=== PATIENT | male | born 1950 | race Caucasian/White ===

== ENCOUNTER 2020-12-16 08:42 | Outpatient (CLI) | payer MEDICARE, SELFPAY ==
--- NOTE | 2020-12-16 08:51 | EST_ITS ---
Patient Info Name: Ascencion Patel Age: 70 years : 1950 Gender: Male Ht: 69 in Wt: 145 lbs BSA: 1.79 m2 Exam Date: 12/16/2020 9:29 AM Exam Location: [facility] Patient Status: Outpatient Admit Date: 12/16/2020 Staff Ordering Physician: Ashwin Watson DO Welding Machine Operator: Lindsey Ramirez RDCS Attending Provider: MARI ORNELAS DO Referring Physician: Shirley ZHONG; Exercise Technologist: Taylor Hou RDCS Exercise Physician: Mari Ornelas DO Exam Type: CA stress echo Study Info Indications R07.9 - Chest pain, unspecified Treadmill exercise stress echocardiogram is performed. Summary 1. 1. Negative Arias exercise stress test for ischemic ST changes by ECG criteria. 2. 2. Good functional capacity, achieving 7 METs of workload. 3. 3. Hypertensive response to exercise. 4. 4. Appropriate HR response to exercise. 5. 5. Appropriate HR recovery at 1 minute post exercise. 6. 6. Negative stress echocardiogram for ischemia by wall motion analysis. 7. 7. Patient informed of the above results. Stress Echo Findings Left Ventricle Appropriate increase in LV endocardial thickening with systole. Appropriate augmentation of contractility with systole. No wall motion abnormality. Left Ventricle Normal LV systolic function, no wall motion abnormality. Protocol: Arias Stress ECG Details Stage: REST Duration (min): 5 min : 43 sec Speed (mph): 0.0 Grade (%): 0 HR (bpm): 67 SBP (mmHg): 127 DBP (mmHg): 76 METS: --- Stage: REST Duration (min): 18 min : 8 sec Speed (mph): 0.0 Grade (%): 0 HR (bpm): 69 SBP (mmHg): 127 DBP (mmHg): 76 METS: --- Stage: STAGE 1 Duration (min): 1 min : 0 sec Speed (mph): 1.7 Grade (%): 10 HR (bpm): 98 SBP (mmHg): 127 DBP (mmHg): 76 METS: --- Stage: STAGE 1 Duration (min): 2 min : 0 sec Speed (mph): 1.7 Grade (%): 10 HR (bpm): 109 SBP (mmHg): 127 DBP (mmHg): 76 METS: --- Stage: STAGE 1 Duration (min): 3 min : 0 sec Speed (mph): 1.7 Grade (%): 10 HR (bpm): 116 SBP (mmHg): 169 DBP (mmHg): 74 METS: --- Stage: STAGE 2 Duration (min): 1 min : 0 sec Speed (mph): 2.5 Grade (%): 12 HR (bpm): 130 SBP (mmHg): 169 DBP (mmHg): 74 METS: --- Stage: STAGE 2 Duration (min): 1 min : 50 sec Speed (mph): 0.0 Grade (%): 0 HR (bpm): 139 SBP (mmHg): 229 DBP (mmHg): 83 METS: --- Stage: RECOVERY Duration (min): 0 min : 9 sec Speed (mph): 0.0 Grade (%): 0 HR (bpm): 139 SBP (mmHg): 229 DBP (mmHg): 83 METS: --- Stage: RECOVERY Duration (min): 1 min : 9 sec Speed (mph): 0.0 Grade (%): 0 HR (bpm): 113 SBP (mmHg): 211 DBP (mmHg): 80 METS: --- Stage: RECOVERY Duration (min): 2 min : 9 sec Speed (mph): 0.0 Grade (%): 0 HR (bpm): 98 SBP (mmHg): 211 DBP (mmHg): 80 METS: --- Stage: RECOVERY Duration (min): 3 min : 9 sec Speed
== END 2020-12-16 08:43 | disposition home or self-care (01) ==
PROVIDERS: PCP Internal Medicine; Visit Provider Internal Medicine
DX: R07.89 Other chest pain (principal)
CPT/HCPCS: 93351

== ENCOUNTER 2021-11-30 10:01 | Outpatient (CLI) | payer MEDICARE, SELFPAY ==
[2021-11-30 11:24] LABS: Alanine Aminotransferase 32 U/L (6-50); Albumin Level 4.5 g/dL (3.5-5.1); Alkaline Phosphatase 46 U/L (38-126); Anion Gap 11 mmol/L (8-16); Aspartate Amino Transferase 35 U/L (17-59); Bilirubin,Total 0.4 mg/dL (0.2-1.3); Blood Urea Nitrogen 20 mg/dL (9-20); Calcium 9.1 mg/dL (8.4-10.2); Carbon Dioxide 30 mmol/L (22-30); Chloride 99 mmol/L (98-107); Cholesterol 191 mg/dL (0-200); Estimated Glomerular Filt Rate > 60; Glucose 94 mg/dL (65-110); HDL Direct 37 mg/dL; Sodium 140 mmol/L (137-145); Triglycerides 109 mg/dL (<150)
[2021-11-30 11:35] LABS: LDL Cholesterol Direct 128 mg/dL
[2021-11-30 11:54] LABS: Prostate Specific Antigen 0.5 ng/mL (< OR = 4.0)
== END 2021-11-30 10:02 | disposition home or self-care (01) ==
LOC: ANHLAB 10:08
PROVIDERS: PCP Internal Medicine; Visit Provider Internal Medicine
DX: Z13.6 Encounter for screening for cardiovascular disorders (principal); E78.5 Hyperlipidemia, unspecified; Z12.5 Encounter for screening for malignant neoplasm of prostate
CPT/HCPCS: 36415; 80053; 80061; 84153; G0103

== ENCOUNTER 2022-01-05 10:28 | Outpatient (CLI) | payer MEDICARE, SELFPAY ==
--- NOTE | 2022-01-05 10:38 | ECG_ITS ---
Measurements Intervals [place] Rate: 69 P: 55 ND: 143 QRS: 33 QRSD: 97 T: 54 QT: 373 QTc: 402 Interpretive Statements SINUS RHYTHM WITHIN NORMAL LIMITS NO PREVIOUS ECG AVAILABLE FOR COMPARISON Electronically Signed On 01-05-2022 13:48:03 CDT by Kwesi Diana M.D.
[2022-01-05 11:10] LABS: Basophils Percent Auto 0.8 % (0.2-1.2); Eosinophils Absolute Auto 0.2 K/mm3 (0-0.3); Eosinophils Percent Auto 3.6 % (0-4.4); Hematocrit 43.2 % (42.0-52.0); Hemoglobin 14.4 g/dL (14.0-18.0); Immature Granulocyte Absolute 0.01 K/mm3 (0.00-0.031); Immature Granulocyte Percent A 0.2 % (0-0.5); Lymphocytes Absolute Auto 1.48 K/mm3 (0.9-3.2); Lymphocytes Percent Auto 28.3 % (18.3-44.2); Mean Corpuscular HGB Conc 33.3 g/dl (32-36); Mean Corpuscular Volume 92.9 fl (80-100); Mean Platelet Volume 10.4 fl (7.4-10.4); Monocytes Absolute Auto 0.4 K/mm3 (0.1-0.6); Monocytes Percent Auto 8.2 % (2.6-8.5); Neutrophils Absolute Auto 3.1 K/mm3 (1.3-6.7); Neutrophils Percent Auto 58.9 % (45.5-73.1); Platelet Count Result 193 k/mm3 (150-375); Red Blood Count 4.65 M/mm3 (4.6-6.20); Red Cell Distribution Width 13.2 % (11.5-14.5); White Blood Count 5.2 K/mm3 (4.5-10.0)
[2022-01-05 11:30] LABS: Alanine Aminotransferase 23 U/L (6-50); Albumin Level 4.4 g/dL (3.5-5.1); Alkaline Phosphatase 45 U/L (38-126); Anion Gap 11 mmol/L (8-16); Aspartate Amino Transferase 26 U/L (17-59); Bilirubin,Total 0.4 mg/dL (0.2-1.3); Blood Urea Nitrogen 17 mg/dL (9-20); Calcium 8.9 mg/dL (8.4-10.2); Carbon Dioxide 31 mmol/L (22-30); Chloride 99 mmol/L (98-107); Estimated Glomerular Filt Rate > 60; Glucose 137 mg/dL (65-110); Potassium 4.1 mmol/L (3.4-5.0); Sodium 141 mmol/L (137-145)
[2022-01-05 12:02] LABS: Cholesterol 165 mg/dL (0-200); HDL Direct 27 mg/dL; Triglycerides 79 mg/dL (<150)
[2022-01-05 12:13] LABS: LDL Cholesterol Direct 106 mg/dL
== END 2022-01-05 10:29 | disposition home or self-care (01) ==
LOC: ANHSURGERY 10:35
PROVIDERS: Nurse Practitioner; PCP Internal Medicine; Visit Provider Surgery
DX: K40.91 Unilateral inguinal hernia, without obstruction or gangrene, recurrent (principal); E78.5 Hyperlipidemia, unspecified
CPT/HCPCS: 36415; 80053; 80061; 85025; 93005

== ENCOUNTER 2022-01-10 01:35 | Day surgery (SDC) | payer MEDICARE, SELFPAY ==
[2022-01-02 09:24] VITALS: BMI 22.1
--- NOTE | 2022-01-02 09:46 | PC.NURSE ---
Addendum entered by Tuyet Lozano RN 01/02/22 09:55: [place] SHOWER MORNING OF SURGERY PER DR SALAS. PT RELAYS UNDERSTANDING. Original Note: Report to the Outpatient Waiting Room, entrance under the green pavilion located off [facility], at time __10:00AM on date ___01/10/22____. OR Time: __12:00PM . Time changes happen often and if your time is changed the preop area will call you the afternoon before. - You and your visitor will be asked to self-screen and do not enter if you have any COVID symptoms. - Only one visitor and NO children visitors are allowed at this time. - The patient visitor is requested to leave or wait in car when not with patient due to restrictions. - A mask is required within the hospital. Patients may have clear liquids (water, carbonated beverages, clear teas, apple juice) until 3 hours prior to surgery with a maximum of 20 ounces. - No food from midnight until time of surgery Take the following medications with a SIP of water the morning of surgery: __NONE Medications to discontinue per physician ____HOLD ALL VITAMINS/SUPPLEMENTS 3 DAYS PRE-OP Date to take last dose 01/06/22 Please no make-up, nail mosotho, hairspray, perfume, deodorant, or body powder the day of surgery. No jewelry (including any body piercings) or valuables the day of surgery, leave them at home. Please take a shower or bath the night before, or the morning of, surgery with an antibacterial soap. Wear comfortable, loose fitting clothing. Children are encouraged to wear pajamas. - Jewelry must be removed prior to entering the operating room. Rings and piercings that are not removed may be cut off. - The hospital will not accept responsibility for valuables. - Please leave all valuables, including medications, at home the day of surgery. If you are going home after surgery, a licensed local owner operator truck driver must drive you home. - NO public transportation without another adult. - We recommend that an adult stay with you for 24 hours following discharge. - We also recommend that you do not drive, make important decision, drink alcoholic beverages, or take any drugs that were not prescribed by your health care provider for at least 24 hours after your discharge time. Follow any additional instructions given to you from your surgeon. If you or anyone in your household have experienced Covid symptoms in the past week, please notify your surgeon or the nurse liaison at the phone number below for possible testing. Telephone instructions given to _PATIENT and asked if any additional questions and then verbalized understanding. Patient advised to call surgeon office or pre surgery nurse liaison [phone] if any additional questions.
[2022-01-10] VITALS (8 sets, daily range): BP systolic 118–143; BP diastolic 65–86; PULSE 74–90; RESP 13–18; TEMP 36.6–37.1; O2SAT 94–100
[2022-01-10] MEDS: LACTATED RINGERS 1,000 ML 30 ML IV CONT ×2 (10:15→14:43)
[2022-01-10] MEDS: KETOROLAC 15 MG/ML VIAL (*BKC) IV PUSH (10:15)
[2022-01-10] MEDS: ACETAMINOPHEN 500 MG TABLET 1000 MG PO (10:15)
--- NOTE | 2022-01-10 10:55 | P.PNAN_ITS ---
Anes - Initial Pre Proc Eval Procedure: Operation Date: 01/10/22 12:00 Proposed Procedures p Open Right Recurrent Inguinal Hernia Repair with Mesh - Rachid Moscoso MD Date/Time: 01/10/22 10:55 Surgeon: Rachid Moscoso MD Pre Op Diagnosis: recurrent right inguinal hernia Patient Data Age: 71 Gender: M Height: 1.75 m Weight: 68 kg Allergies Allergy/AdvReac Type Severity Reaction Status Date / Time ephedrine Allergy Unknown Irritable Verified 01/10/22 10:49 codeine AdvReac Dizziness, Verified 01/10/22 10:49 NAUSEA Home Medications Medication Instructions Recorded Confirmed Type multivitamin (Multiple Vitamins 1 tablet PO DAILY 04/13/19 01/02/22 History tablet) famotidine 10 mg tablet 10 mg PO DAILY #90 tabs 11/13/19 01/02/22 Rx ascorbic acid (vitamin C) 1,000 mg 1 g PO DAILY 01/02/22 01/02/22 History tablet calcium carbonate 600 mg-vitamin 1 tablet PO DAILY 01/02/22 01/02/22 History D3 20 mcg (800 unit) tablet (Caltrate with Vitamin D3) omega 5-xvz-ycr-fish oil 1,200 mg 1 cap PO DAILY 01/02/22 01/02/22 History (144 mg-216 mg) capsule (Fish Oil) vitamin B complex 1 cap PO DAILY 01/02/22 01/02/22 History vitamin E 200 unit capsule 200 unit PO DAILY 01/02/22 01/02/22 History Patient hx anesthesia problems: none Family hx anesthesia problems: none Results Review: All pre-operative results and documents have been reviewed as part of the pre- operative evaluation. [facility], [facility] Past Medical History Medical History (Updated 12/21/21 @ 10:19 by Juliette Boggs) GERD (gastroesophageal reflux disease) History of sinusitis Positive colorectal cancer screening using Cologuard test Surgical History Surgical History History of colonoscopy History of hernia repair Family History Family History Father Cerebrovascular accident Family history of condition Mother Family history of malignant neoplasm of breast in first degree relative Sibling Patient's sister is in good health Patient's brother is in good health Social History Social History Smoking status: Never smoker Alcohol intake: current Drinks per week: 3 Alcohol use details: socially Substance use: former Substance use type: marijuana Other substance usage details: MARIJUANA AT INTERVALS X 20 YEARS Living arrangements: alone Spiritual care concerns: No Anes - Eval Final PreProcedure Day of Procedure 01/10/22 10:55 Patient weight: normal Heart: regular rate and rhythm Lungs: clear to auscultation Airway: Mallampati scale class II Neurological: alert and oriented Last oral intake: >/= 8 hours ASA classification: II Emergent: no Anesthetic plan: proceed Anesthesia type and monitoring: general LMA and standard monitoring Results Review: All pre-operative results and documents have been reviewed as part of the pre- operative evaluation. Informed Consent: The patient's anesthetic plan and its attendant risks and benefits were discussed with the patient/family/POA. Questions were solicited and answers p rovided to the satisfaction of the patient/family/POA.
--- NOTE | 2022-01-10 11:46 | WPDHPUPDATE1 ---
History and Physical Update Update Date/Time: 01/10/22 11:46 History and Physical has been reviewed, including an updated exam of the patient. There are NO changes in the patient's condition. Risks, benefits, and alternatives have been discussed and questions answered. Patient agrees to proceed with procedure.
[2022-01-10] MEDS: ceFAZolin 2 GM/D5W 50 ML 2 GM/50 ML BAG IVPB (11:53)
[2022-01-10] MEDS: LIDOCAINE HCL 1% PF 30 ML VIAL 15 ML INFILTRATE (12:22)
[2022-01-10] MEDS: BUPIVACAINE/EPINEPHRINE 0.25% 50 ML VIAL 15 ML INFILTRATE (12:22)
--- NOTE | 2022-01-10 14:46 | W.PM.PROC2 ---
Procedure Note - Detailed Date of Procedure 01/10/22 Pre-op Diagnosis recurrent right inguinal hernia Post-op Diagnosis Same Procedure Performed Open inguinal hernia repair with mesh Surgeon Rachid Moscoso MD Scallop Cutter Machine Anum GUSMAN, OR 1st assist Anesthesia General Indications Gradually enlarging bulge and pain in right groin Findings Patient had both a large indirect inguinal hernia recurrence with a definite weakness in the direct space. Small bowel was found within the indirect inguinal hernia sac. Description of Procedure The patient was placed in the supine position on the operating room table. After induction of adequate general endotracheal by [facility] Anesthesia staff, we carefully prepped the entire lower abdomen with chlorhexidine and scrotum and penis with Betadine. One sterile towel was placed underneath the scrotum. Four towels were placed around the right lower quadrant. Following this, a time-out was performed with the surgical team and the patient's surgical procedure and site was confirmed. We then carefully excised most of the scar from his previous inguinal hernia repair in the past and cut through the subcutaneous tissue down to Dyan's fascia. The incision was made after introducing a mixture of local anesthetic, using 0.25% Marcaine with epinephrine and 1% Xylocaine plain as both an ilioinguinal nerve block and at the incision site with a 25 gauge needle. Following this, I carefully made the incision, excising the old scar and and carried it down through the subcutaneous tissue. Dyan's fascia was incised and then we identified the external oblique aponeurosis and the external ring. The external ring appeared to be significantly dilated by his hernia. Then the same mixture of local anesthetic was infiltrated underneath the external oblique aponeurosis and this was split in the direction of it's fibers with a #15 blade initially and then using Metzenbaum scissors. I then opened the external oblique through the external ring and incised this somewhat posteriorly and superiorly exposing the ilioinguinal nerve. This nerve was carefully preserved laterally and then I carefully and meticulously dissected out the cord structures at the level of the pubic tubercle. These were densely adhered with a thin membrane to the outside of the large indirect inguinal hernia sac. I then surrounded these structures at the level of pubic tubercle and placed a [place] drain around them. I then carefully dissected the hernia sac up and off of the cord tissues, and brought it up and out of the incision. We carefully dissected the layers and the cremasteric tissues off the hernia sac and then eventually opened the large hernia sac. Holding this up with 4 hemostats, I carefully dissected it off the cord structures, being careful to avoid injury to the Pampiniform plexus veins, the spermatic artery and the vas. Once the hernia sac was carefully dissected back to the level of the internal ring, a suture ligation with a pursestring suture of 2-0 silk was used to close the neck of the hernia sac. Prior to closure was noted that there was significant amount of small bowel that was not incarcerated but was within the hernia sac at the time of the dissection and opening the sac. This was able to be reduced back in the abdomen with the patient relaxed by paralyzation. We watch this carefully as I placed the pursestring suture and this nicely narrowed the neck of the sac. Following this, a 2 - 0 silk tie was placed just below this, tied tight, and then distally the hernia sac was amputated with Bovie cautery. It was then passed off the field for pathologic evaluation. This gave us a double high ligation of the large indirect inguinal hernia sac and it did not appear that the bowel cutting longer extend into the groin area. We left a cuff of about 1 cm of distal sac be on the 2 sutures mentioned above. This was subsequently buried as we
--- NOTE | 2022-01-10 16:59 | SUR.PHASEII ---
DR. SALAS CALLED PER PATIENT REQUEST TO CHANGE PAIN MED PRESCRIPTION. DR. SALAS WILL CHANGE SCRIPT. PATIENT AWARE.
--- NOTE | 2022-01-10 17:00 | SUR.PHASEII ---
PATIENT VOIDED WITH NORMAL STREAM PER PATIENT.
== END 2022-01-10 16:59 | disposition home or self-care (01) ==
PROVIDERS: PCP Internal Medicine; Visit Provider Surgery
PROC: (CPT 49520; principal; 2022-01-10 12:00)
DX: K40.91 Unilateral inguinal hernia, without obstruction or gangrene, recurrent (principal); K21.9 Gastro-esophageal reflux disease without esophagitis; F12.90 Cannabis use, unspecified, uncomplicated
CPT/HCPCS: 49520; 88302; A9270; C1781; J0690; J1885; J2405; J2704; J3010; J7120

== ENCOUNTER 2022-02-15 15:50 | Outpatient (NON) | payer MEDICARE, SELFPAY | END 2022-02-15 15:51 | disposition home or self-care (01) | LOC: ANHLAB 15:52 | PROVIDERS: PCP Internal Medicine; Visit Provider Nurse Practitioner | DX: L73.8 Other specified follicular disorders (principal) | CPT/HCPCS: 88305 ==

== ENCOUNTER 2022-06-04 08:20 | Day surgery (SDC) | payer MEDICARE, SELFPAY ==
[2022-04-10 14:55] VITALS: BMI 22.1
[2022-05-22 09:38] VITALS: BMI 21.9
[2022-06-04 09:10] VITALS: BP 150/96; PULSE 69; RESP 20; TEMP 37.2; O2SAT 99
--- NOTE | 2022-06-04 09:26 | PM.HPGS ---
History of Present Illness History of Present Illness Consent: Risks, benefits, and alternatives have been discussed and questions answered. Patient agrees to proceed with procedure. Chief complaint: pre-cancerous polyp Narrative: Ascencion Patel is a 72 year old male with large polyp removed 3 years ago Review of Systems Constitutional: Constitutional: Denies headache(s) and Denies weakness Eyes: Eyes: Denies blurry vision ENT: Reports Normal hearing present, Denies headache(s) and Denies neck pain Cardiovascular: Cardiovascular: Denies chest pain and Denies dyspnea Respiratory: Respiratory: Denies dyspnea Gastrointestinal: Gastrointestinal: Reports no additional gastrointestinal complaints Genitourinary: Genitourinary: Denies dysuria Musculoskeletal: Musculoskeletal: Denies neck pain Integumentary/Breasts: Skin/Breast: Denies dry skin Neurologic: Reports Normal hearing present, Denies headache(s) and Denies weakness Psychiatric: Psychiatric: Denies anxiety Endocrine: Endocrine: Denies change in body appearance Hematologic/Lymphatic: Hematologic/Lymphatic: Denies easy bleeding Allergic/Immunologic: Allergic/Immunologic: Denies urticaria PMFSH Past Medical History Medical History GERD (gastroesophageal reflux disease) History of sinusitis Positive colorectal cancer screening using Cologuard test Surgical History Surgical History History of colonoscopy History of hernia repair History of inguinal hernia repair 01/10/2022 - Open inguinal hernia repair with mesh Family History Family History Father Cerebrovascular accident Family history of condition Mother Family history of malignant neoplasm of breast in first degree relative Sibling Patient's sister is in good health Patient's brother is in good health Social History Social History Smoking status: Never smoker Alcohol intake: current Drinks per week: 3 Alcohol use details: socially Substance use: former Substance use type: marijuana Other substance usage details: MARIJUANA AT INTERVALS X 20 YEARS Living arrangements: alone Spiritual care concerns: No Meds Home Medications and Allergies Home Medications Medication Instructions Recorded Confirmed Type multivitamin (Multiple Vitamins 1 tablet PO DAILY 04/13/19 06/04/22 History tablet) famotidine 10 mg tablet 10 mg PO DAILY #90 tabs 11/13/19 06/04/22 Rx ascorbic acid (vitamin C) 1,000 mg 1 g PO DAILY 01/02/22 06/04/22 History tablet calcium carbonate 600 mg-vitamin 1 tablet PO DAILY 01/02/22 06/04/22 History D3 20 mcg (800 unit) tablet (Caltrate with Vitamin D3) omega 6-upe-mlk-fish oil 1,200 mg 1 cap PO DAILY 01/02/22 06/04/22 History (144 mg-216 mg) capsule (Fish Oil) vitamin B complex 1 cap PO DAILY 01/02/22 06/04/22 History vitamin E 200 unit capsule 200 unit PO DAILY 01/02/22 06/04/22 History Allergies Allergy/AdvReac Type Severity Reaction Status Date / Time codeine AdvReac Mild Dizziness, Verified 06/04/22 08:47 NAUSEA hydrocodone AdvReac Mild Nausea Verified 06/04/22 08:47 ephedrine AdvReac Unknown Irritable Verified 06/04/22 08:47 Exam Const: General: comfortable and no acute distress HENMT: Face/Nose/Sinus: Normal nares present Eyes: General: appearance normal, both eyes and all related structures Neck: Neck: no JVD Resp: Auscultation: clear to auscultation bilaterally Cardio: Rate: regular rate Rhythm: regular rhythm GI: Inspection: non-distended GI Palp: Yes Soft to palpation Skin: General skin exam: normal color Neuro: General: gait normal Speech: normal speech Extrem: General: normal to inspection Psych: Mental Status: mental status grossly normal Assessment and Plan Assessment
[2022-06-04] MEDS: LACTATED RINGERS 1,000 ML 150 ML IV CONT (09:30)
--- NOTE | 2022-06-04 09:31 | WPDANESEPPF ---
Anes - Initial Pre Proc Eval Procedure: Operation Date: 06/04/22 10:00 Proposed Procedures p Diagnostic Colonoscopy - Trevor Barreto MD Date/Time: 06/04/22 09:31 Surgeon: Trevor Barreto MD Pre Op Diagnosis: pre-cancerous polyp Patient Data Age: 72 Gender: M Height: 1.75 m Weight: 65.9 kg Allergies Allergy/AdvReac Type Severity Reaction Status Date / Time codeine AdvReac Mild Dizziness, Verified 06/04/22 08:47 NAUSEA hydrocodone AdvReac Mild Nausea Verified 06/04/22 08:47 ephedrine AdvReac Unknown Irritable Verified 06/04/22 08:47 Home Medications Medication Instructions Recorded Confirmed Type multivitamin (Multiple Vitamins 1 tablet PO DAILY 04/13/19 06/04/22 History tablet) famotidine 10 mg tablet 10 mg PO DAILY #90 tabs 11/13/19 06/04/22 Rx ascorbic acid (vitamin C) 1,000 mg 1 g PO DAILY 01/02/22 06/04/22 History tablet calcium carbonate 600 mg-vitamin 1 tablet PO DAILY 01/02/22 06/04/22 History D3 20 mcg (800 unit) tablet (Caltrate with Vitamin D3) omega 5-sju-swy-fish oil 1,200 mg 1 cap PO DAILY 01/02/22 06/04/22 History (144 mg-216 mg) capsule (Fish Oil) vitamin B complex 1 cap PO DAILY 01/02/22 06/04/22 History vitamin E 200 unit capsule 200 unit PO DAILY 01/02/22 06/04/22 History Patient hx anesthesia problems: none Family hx anesthesia problems: none Results Review: All pre-operative results and documents have been reviewed as part of the pre-operative evaluation. [facility] Past Medical History Medical History GERD (gastroesophageal reflux disease) History of sinusitis Positive colorectal cancer screening using Cologuard test Surgical History Surgical History History of colonoscopy History of hernia repair History of inguinal hernia repair 01/10/2022 - Open inguinal hernia repair with mesh Family History Family History Father Cerebrovascular accident Family history of condition Mother Family history of malignant neoplasm of breast in first degree relative Sibling Patient's sister is in good health Patient's brother is in good health Social History Social History Smoking status: Never smoker Alcohol intake: current Drinks per week: 3 Alcohol use details: socially Substance use: former Substance use type: marijuana Other substance usage details: MARIJUANA AT INTERVALS X 20 YEARS Living arrangements: alone Spiritual care concerns: No Anes - Eval Final PreProcedure Day of Procedure 06/04/22 09:31 Patient weight: normal Heart: regular rate and rhythm Lungs: clear to auscultation Airway: Mallampati scale class II Neurological: alert and oriented Last oral intake: >/= 8 hours ASA classification: II Emergent: no Anesthetic plan: proceed Anesthesia type and monitoring: general GIVS and standard monitoring Results Review: All pre-operative results and documents have been reviewed as part of the pre-operative evaluation. Informed Consent: The patient's anesthetic plan and its attendant risks and benefits were discussed with the patient/family/POA. Questions were solicited and answers provided to the satisfaction of the patient/family/POA.
[2022-06-04 09:49] VITALS: BP 99/63; PULSE 70; RESP 16; O2SAT 98
[2022-06-04 09:59] VITALS: BP 99/69; PULSE 65; RESP 16; O2SAT 99
[2022-06-04 10:09] VITALS: BP 114/69; PULSE 63; RESP 20; O2SAT 97
--- NOTE | 2022-06-04 10:19 | WPDANESPN ---
Anes - Prog Note Post-Op Date/Time: 06/04/22 10:19 Cardiovascular status: normal Respiratory status: normal Airway patency: baseline Mental status: baseline Post-Op hydration status: normal Vital Signs: Last Vital Signs Temp 37.2 C 06/04/22 09:10 Pulse 69 06/04/22 09:10 Resp 20 06/04/22 09:10 BP 150/96 H 06/04/22 09:10 Pulse Ox 99 06/04/22 09:10 O2 Del Method Room Air 06/04/22 09:10 Pain Score (VAS): 0 I/O: Intake & Output 06/03/22 06/04/22 06/04/22 23:59 07:59 15:59 Intake Total 400 Balance 400 Patient Feedback: Patient satisfied with anesthetic care.
== END 2022-06-04 10:28 | disposition home or self-care (01) ==
PROVIDERS: PCP Internal Medicine; Visit Provider Internal Medicine Gastroenterology
PROC: 0DJD8ZZ Inspection of Lower Intestinal Tract, Via Natural or Artificial Opening Endoscopic (ICD-10-PCS; CPT 45378; principal; 2022-06-04 10:00)
DX: K63.5 Polyp of colon (principal)
CPT/HCPCS: 45385

== ENCOUNTER 2022-06-04 09:00 | Outpatient (NON) | payer MEDICARE, SELFPAY | END 2022-06-04 09:01 | disposition home or self-care (01) | PROVIDERS: PCP Internal Medicine; Visit Provider Internal Medicine Gastroenterology | DX: R19.5 Other fecal abnormalities (principal) | CPT/HCPCS: 88305 ==

== ENCOUNTER 2023-01-24 10:11 | Outpatient (CLI) | payer MEDICARE, SELFPAY ==
[2023-01-24 11:21] LABS: Alanine Aminotransferase 29 U/L (6-50); Albumin Level 4.4 g/dL (3.5-5.1); Alkaline Phosphatase 44 U/L (38-126); Anion Gap 3 mmol/L (8-16); Aspartate Amino Transferase 29 U/L (17-59); Bilirubin,Total 0.5 mg/dL (0.2-1.3); Blood Urea Nitrogen 22 mg/dL (9-20); Carbon Dioxide 33 mmol/L (22-30); Chloride 101 mmol/L (98-107); Cholesterol 207 mg/dL (0-200); Estimated Glomerular Filt Rate > 60; Glucose 107 mg/dL (65-110); HDL Direct 32 mg/dL; Sodium 137 mmol/L (137-145); Triglycerides 133 mg/dL (<150)
[2023-01-24 11:32] LABS: LDL Cholesterol Direct 138 mg/dL
[2023-01-24 11:43] LABS: Erythrocyte Sedimentation Rate 16 mm/hr (0-20)
[2023-01-24 11:49] LABS: Prostate Specific Antigen 0.5 ng/mL (< OR = 4.0)
== END 2023-01-24 10:12 | disposition home or self-care (01) ==
PROVIDERS: PCP Nurse Practitioner; Visit Provider Nurse Practitioner
DX: R51.9 Headache, unspecified (principal); E78.5 Hyperlipidemia, unspecified; Z12.5 Encounter for screening for malignant neoplasm of prostate
CPT/HCPCS: 36415; 80053; 80061; 84153; 85652; 86141; G0103

== ENCOUNTER 2023-02-08 08:44 | Outpatient (CLI) | payer MEDICARE, SELFPAY ==
--- NOTE | ~2023-02-08 | CT_ITS ---
Head CT History: Headache Technique: Imaging of the brain was performed prior to and following intravenous administration of 10 0 cc of Omnipaque 350 contrast material. Dose reduction technique was used on this scan by utilizing automated exposure control and iterative reconstruction technique. The dose-length product (DLP) was 1210.67 mGy-cm. Findings: There is no evidence of intracranial hemorrhage, mass lesion, or acute infarct. Brain par enchyma appears normal. The ventricles and subarachnoid spaces are normal in size. The calvarium ap pears normal. The visualized paranasal sinuses and mastoid air cells are clear. No abnormal postcontrast enhancement seen. Impression: No significant abnormality seen. Reviewed, dictated and finalized at [facility]. TENDER Impression: No significant abnormality seen.
== END 2023-02-08 08:45 | disposition home or self-care (01) ==
PROVIDERS: PCP Nurse Practitioner; Visit Provider Nurse Practitioner
DX: R51.9 Headache, unspecified (principal)
CPT/HCPCS: 70470; Q9967